=== PATIENT | female | born 1940 | race Caucasian/White ===

== ENCOUNTER 2016-04-16 21:45 | Emergency (ER) | payer MEDICARE, BC ==
[~2016-04-16] VITALS: Ht 162.6 cm; Wt 62.0 kg
[2016-04-16] MEDS ORDERED: LISI10TA3 PO (21:49)
[2016-04-16 21:50] VITALS: BP 141/101; PULSE 80; RESP 16; TEMP 98.2; O2SAT 98
[2016-04-16] MEDS ORDERED: MORPHINE SULFATE 4 MG/ML INJ IV PUSH ONE (22:00)
[2016-04-16] MEDS ORDERED: SODIUM CHLOR 0.9% 1000 ML INJ 1,000 ML IV ONE (22:00)
[2016-04-16] MEDS ORDERED: HYDR-3533 PO (22:18)
--- NOTE | 2016-04-16 22:18 | PD ---
HPI Chief Complaint: Fall Time Seen by Provider: 21:49 Travel History International Travel<30 days: No Contact w/Intl Traveler<30days: No Traveled to known affect area: No History of Present Illness HPI So well 75-year-old woman who tripped and fell tonight after having 4 drinks. Unclear exactly what made her fall. Denies any syncope or collapse. She has pain in her right shoulder. She does remember hitting her head but she does have a small abrasion to the bridge of her nose. Not on any blood thinners. No LOC. Feeling otherwise well. Pain and right shoulders worse at any range of motion. The been constant since onset, no radiation. History Past Medical History Narrative Medical Hypertension Tetanus Vaccination: Unknown Influenza Vaccination: Yes Social History Alcohol Use: Yes () Tobacco Use: Yes (QUIT 1991) Allergies-Medications (Allergen,Severity, Reaction): Coded Allergies: No Known Allergies (Unverified , 04/16/16) Reported Meds & Prescriptions Reported Meds & Active Scripts Active Lortab (Hydrocodone-Acetaminophen) 5-325 Mg Tab 1-2 Tab PO Q6H PRN Reported Lisinopril 10 Mg Tab 10 Mg PO DAILY Review of Systems Except as stated in HPI: all other systems reviewed are Neg Physical Exam Narrative GENERAL: Well-appearing 74 year-old woman, no acute distress. SKIN: Warm and dry. HEAD: Normocephalic, atraumatic. EYES: Pupils equal and round. No scleral icterus. No injection or drainage. ENT: No nasal bleeding or discharge. Mucous membranes pink and moist. All small abrasion to the bridge of the nose. Minimal tenderness. NECK: Trachea midline. No midline tenderness. Full painless range of motion. CARDIOVASCULAR: Regular rate and rhythm. No murmur appreciated. RESPIRATORY: No accessory muscle use. Clear to auscultation. Breath sounds equal bilaterally. GASTROINTESTINAL: Abdomen soft, non-tender, nondistended. Hepatic and splenic margins not palpable. MUSCULOSKELETAL: No obvious deformities. A lot of tenderness or proximal humerus and shoulder. Pain with any Range of motion of the shoulder. No tenderness over the clavicle. No chest wall tenderness. Radial/shoulder/ median nerve function is intact in the right arm. Elbow and wrist are unremarkable on the right. NEUROLOGICAL: Awake and alert. No obvious cranial nerve deficits. Motor grossly within normal limits. Normal speech. PSYCHIATRIC: Appropriate mood and affect; insight and judgment normal. Data Data Last Documented VS Vital Signs Date Time Temp Pulse Resp B/P Pulse Ox O2 Delivery O2 Flow Rate FiO2 04/16/16 22:50 100 2.00 04/16/16 22:16 16 04/16/16 21:50 98.2 80 141/101 Orders Iv Access Insert/Monitor (04/16/16 21:57) Humerus (Min 2vws) (04/16/16 ) Ct Brain W/O Iv Contrast(Rout) (04/16/16 ) Sodium Chlor 0.9% 1000 Ml Inj (Ns 1000 M (04/16/16 22:00) Morphine Inj (Morphine Inj) (04/16/16 22:00) Shoulder, Limited(2vws) (04/16/16 ) Propofol 200 Mg/20 Ml Inj (Diprivan 200 (04/16/16 23:00) Shoulder, Limited(2vws) (04/16/16 ) Sling And Swathe (04/17/16 ) MDM Medical Decision Making Medical Screen Exam Complete: Yes Emergency Medical Condition: Yes Interpretation(s) CT head: Negative. X-ray right shoulder, right humerus: Anterior shoulder dislocation, possible Hill-Sachs lesion. My review of repeat right shoulder x-ray: Successful reduction. Differential Diagnosis Right shoulder fracture, dislocation, contusion, other Narrative Course Medical decision making 9 year-old woman trip and fall and right shoulder pain, suspect proximal right humerus fracture. We will plan on sling and swath immobilization pending x- rays. Pain medication and outpatient follow-up. FINAL: X-ray showed dislocation of the right shoulder. This was reduced at the bedside. Patient tolerated well. Procedures Procedure Narrative After the risks and benefits were discussed the following procedure was performed: MODERATE SEDATION: The patient was placed on a cardiac technician and pulse oximetry. An ambu bag and suction was immediately available at bedside. The patient was monitored by the nurse. Oxygen saturation, heart rate and blood pressure were monitored. Procedural sedation was acheived using propofol. The patient was observed until awake and alert. Procedural Sedation time in attendance was 20 minutes. Shoulder reduction: Initial attempt to relocate the shoulder was made using scapular manipulation. This was unsuccessful. Patient was then sedated with propofol and shoulder was easily reduced with axial traction. Patient tolerated well. Neurovascular intact following procedure. Diagnosis Primary Impression: Dislocation of right shoulder joint Additional Instructions: Wear sling for the next 48 hours. Follow-up with your primary doctor in the next 2-4 days. Begin range of motion exercises tomorrow. Use Lortab if needed for pain. Med/Other Pt SpecificInfo: Prescription(s) given Scripts Hydrocodone-Acetaminophen (Lortab)5-325 Mg Tab1-2 Tab PO Q6H PRN (PAIN) #30 TAB Prov:Davonte Mckeon MD 04/16/16 Disposition: 01 DISCHARGE HOME Condition: Stable Davonte Mckeon MD Apr 16, 2016 22:18
--- NOTE | 2016-04-16 22:42 | RADRPT ---
EXAM DATE/TIME: 04/16/2016 22:12 [facility] COMPARISON: No previous studies available for comparison. INDICATIONS : Pain from fall. MEDICAL HISTORY : None. SURGICAL HISTORY : None. ENCOUNTER: Initial ACUITY: 1 day PAIN SCORE: 10/10 LOCATION: Right shoulder. FINDINGS: The glenohumeral joint is anteriorly dislocated. Probably a shallow Hill-Sachs lesion of the humeral head. I don't see a displaced fracture. There is severe subacromial spurring noted. CONCLUSION: Anteriorly dislocated glenohumeral joint. Severino Love MD on April 16, 2016 at 22:40 Board Certified Radiologist. This report was verified electronically.
--- NOTE | 2016-04-16 22:43 | RADRPT ---
EXAM DATE/TIME: 04/16/2016 22:13 [facility] COMPARISON: No previous studies available for comparison. INDICATIONS : Pain from fall. MEDICAL HISTORY : None. SURGICAL HISTORY : None. ENCOUNTER: Initial ACUITY: 1 day PAIN SCORE: 10/10 LOCATION: Right proximal humerus. FINDINGS: Right glenohumeral joint is anteriorly dislocated and there may be a shallow Hill-Sachs lesion of the humeral head. The humerus is otherwise intact and otherwise has normal morphology. No displaced frac tures are seen. Soft tissues are within normal limits. CONCLUSION: Anterior dislocation of the glenohumeral joint with possible shallow Hill-Sachs lesion. Otherwise int act right humerus. Severino Love MD on April 16, 2016 at 22:40 Board Certified Radiologist. This report was verified electronically.
--- NOTE | 2016-04-16 22:46 | RADRPT ---
EXAM DATE/TIME: 04/16/2016 22:29 [facility] COMPARISON: No previous studies available for comparison. INDICATIONS : Trauma, fall. RADIATION DOSE: 43.59 CTDIvol (mGy) MEDICAL HISTORY : None SURGICAL HISTORY : None. ENCOUNTER: Initial ACUITY: 1 day PAIN SCALE: 4/10 LOCATION: cranial TECHNIQUE: Multiple contiguous axial images were obtained of the head. Using automated exposure control and adj ustment of the mA and/or kV according to patient size, radiation dose was kept as low as reasonably a chievable to obtain optimal diagnostic quality images. FINDINGS: CEREBRUM: The ventricles are normal for age. No evidence of midline shift, mass lesion, hemorrhage or acute in farction. No extra-axial fluid collections are seen. There is frontal lobe predominant cortical atro phy. POSTERIOR FOSSA: The cerebellum and brainstem are intact. The 4th ventricle is midline. The cerebellopontine angle i s unremarkable. EXTRACRANIAL: The visualized portion of the orbits is intact. SKULL: The calvaria is intact. No evidence of skull fracture. CONCLUSION: No bleed or other acute intracranial abnormality. Atrophy. Severino Love MD on April 16, 2016 at 22:44 Board Certified Radiologist. This report was verified electronically.
[2016-04-16 22:50] VITALS: O2SAT 100
[2016-04-16] MEDS ORDERED: PROPOFOL 200 MG/20 ML AMP IV ONE (23:00)
[2016-04-17 00:25] VITALS: BP 150/67; PULSE 84; RESP 16; O2SAT 98
[2016-04-17] MEDS ORDERED: ACETAMINOPHEN/HYDROcodone 325 MG/5 MG TAB PO ONE ×2 (00:30)
--- NOTE | 2016-04-17 00:41 | RADRPT ---
EXAM DATE/TIME: 04/17/2016 00:15 [facility] COMPARISON: SHOULDER RIGHT LTD (2VWS), April 16, 2016, 22:12. INDICATIONS : Post reduction of right shoulder dislocation. MEDICAL HISTORY : None. SURGICAL HISTORY : None. ENCOUNTER: Subsequent ACUITY: 1 day PAIN SCORE: 8/10 LOCATION: Right Humerus FINDINGS: Interval reduction of right shoulder dislocation. The glenohumeral joint is approximated. No obvious fracture fragments. CONCLUSION: Interval reduction of right anterior shoulder dislocation. Vimal Hay MD on April 17, 2016 at 0:39 Board Certified Radiologist. This report was verified electronically.
== END 2016-04-17 00:56 | disposition home or self-care (01) ==
LOC: NEPA 21:45
DX: S43.004A Unspecified dislocation of right shoulder joint, initial encounter (principal); S00.31XA Abrasion of nose, initial encounter; I10 Essential (primary) hypertension; W01.198A Fall on same level from slipping, tripping and stumbling with subsequent striking against other object, initial encounter; Y92.009 Unspecified place in unspecified non-institutional (private) residence as the place of occurrence of the external cause
CPT/HCPCS: 23650; 70450; 73030; 73060; 96361; 96374; 99284; J2270; J7030